=== PATIENT | male | born 1970 | race American Indian/Alaskan Native ===

== ENCOUNTER 2024-03-11 09:28 | Outpatient (CLI) | payer OTHER, SELFPAY ==
--- NOTE | ~2024-03-11 | XR_ITS ---
Left Knee Technique: AP, lateral, and sunrise views were obtained. Clinical History: Osteoarthritis Findings: No fracture or dislocation is seen. There is advanced tricompartmental osteoarthritis, with extensive osteophyte formation, and mild joint space narrowing, spurs at the lateral compartment.. S oft tissues are unremarkable. No joint effusion is seen. Impression: Advanced tricompartment osteoarthritis. Reviewed, dictated and finalized at location M. UX ENGINEER Impression: Advanced tricompartment osteoarthritis.
--- NOTE | ~2024-03-11 | XR_ITS ---
Right Knee Technique: AP, lateral, and sunrise views were obtained. Clinical History: Osteoarthritis Findings: No fracture or dislocation is seen. There is advanced tricompartment osteoarthritis, with e xtensive osteophyte formation. There is lateral compartment narrowing. There is a large loose body po sterior to the proximal tibia measuring 2.8 cm in diameter, possibly within a Murillo's cyst. Soft tiss ues are otherwise unremarkable. No joint effusion is seen. Impression: Advanced tricompartmental osteoarthritis, as detailed above. 2.8 cm ovoid loose body posterior to the proximal tibia, possibly within a Murillo's cyst. Reviewed, dictated and finalized at location M. GY PROJECTS LEAD Impression: Advanced tricompartmental osteoarthritis, as detailed above. 2.8 cm ovoid loose body posterior to the proximal tibia, possibly within a Bake r's cyst.
== END 2024-03-11 09:29 | disposition home or self-care (01) ==
LOC: ANHIMG 09:34
PROVIDERS: Visit Provider Orthopaedic Surgery
DX: M17.11 Unilateral primary osteoarthritis, right knee (principal); M23.41 Loose body in knee, right knee; M17.12 Unilateral primary osteoarthritis, left knee
CPT/HCPCS: 73564

== ENCOUNTER 2024-05-13 14:38 | Outpatient (CLI) | payer OTHER, SELFPAY ==
--- NOTE | ~2024-05-13 | CT_ITS ---
EXAMINATION: CT LE LT wo con DATE: 05/13/2024 15:17 INDICATION: Unilateral primary osteoarthritis, left knee. Preoperative planning. TECHNIQUE: Computed tomography (CT) of the left lower limb was performed without intravenous contrast . Automated exposure control and iterative reconstruction technique were employed. The dose-length pr oduct was 2010.10 mGy-cm. COMPARISON: Left knee radiographs 03/11/2024 FINDINGS: There is moderate left hip osteoarthritis. Left knee demonstrates severe osteoarthritis of the medial and patellofemoral compartments and moderate osteoarthritis of the lateral compartment. Th ere is a small knee joint effusion, predominantly medially. There is a ganglion cyst along medial col lateral ligament measuring 7.5 x 1.0 x 3.2 cm. IMPRESSION: 1. Severe left knee osteoarthritis. 2. Large ganglion cyst along medial collateral ligament of the knee. 3. Small knee joint effusion. 4. Moderate left hip osteoarthritis. Reviewed, dictated and finalized at location A. RANCE SPECIAL AGENT
--- NOTE | 2024-05-13 15:16 | ECG_ITS ---
Test Date: 2024-05-13 15:22:27 Measurements Intervals [place] Rate: 59 P: 53 DE: 161 QRS: 73 QRSD: 104 T: 73 QT: 443 QTc: 440 Interpretive Statements SINUS BRADYCARDIA INCOMPLETE RIGHT BUNDLE BRANCH BLOCK [90+ ms QRS DURATION, TERMINAL R IN V1/V2, 40+ ms S IN I/aVL/V4/V5/V6] No previous ECG available for comparison Electronically Signed On 05-15-2024 08:45:46 SUNGLASS CLIP ATTACHER by Temo Jimenez M.D.
[2024-05-13 15:45] LABS: Hematocrit 41.9 % (42.0-52.0)
[2024-05-13 16:01] LABS: Albumin Level 4.3 g/dL (3.5-5.1); Estimated Glomerular Filt Rate > 60; Glucose 105 mg/dL (65-110)
== END 2024-05-13 14:39 | disposition home or self-care (01) ==
PROVIDERS: Visit Provider Orthopaedic Surgery
DX: M17.12 Unilateral primary osteoarthritis, left knee (principal); M67.462 Ganglion, left knee; M25.462 Effusion, left knee; M16.12 Unilateral primary osteoarthritis, left hip
CPT/HCPCS: 36415; 73700; 82040; 82565; 82947; 85014; 85018; 93005

== ENCOUNTER 2024-07-23 11:46 | Outpatient (CLI) | payer OTHER, SELFPAY ==
--- OUTSIDE RECORDS SUMMARY | 2024-07-23 13:32 | XMS_ITS | Clinical Summary ---
Author Organization [facility] [place] Address [address] [place] [address] Care Team Providers Care Heel Former Name Role Phone Unavailable Primary Care Provider Unavailabl e Source Comments [facility],non-owned Affiliates and Associated Physician Practices is amultiple site organization consisting of ambulatory clinics and hospital sitesin [place], [place], [place] and [place]. This disclosure is being madepursuant to the Care Everywhere program and may not contain all information available regarding this patient. Last updated 18.[facility] Allergies No known active allergies Medications * Be aware that medications may not be up to date on this document. Alwaysverify current medications with the patient. Medication Sig Dispensed Refills Start Date End Date Status amLODIPine (Norvasc) 5 MG tabletIndications:Hyp ertension Take 1 (one) tablet by mouth once daily Reasons: High Blood Pressure Disorder Active losartan (Cozaar) 25 MG tabletIndications:Hyp ertension Take 1 (one) tablet by mouth once daily Reasons: High Blood Pressure Disorder Active albuterol HFA (Proventil; Ventolin; Proair) 108 (90 Base) MCG/ACT inhaler Inhale 2 (two) puffs by mouth every 6 hours as needed for Shortness of Breath or Wheezing Active aspirin EC (Ecotrin) 81 MG tablet Take 1 (one) tablet by mouth once daily Active esomeprazole (NexIUM) 20 MG capsule Take 1 (one) capsule by mouth as needed with food for Heartburn Active sertraline (Zoloft) 100 MG tablet Take 1 (one) tablet by mouth once daily Active ranolazine ER 12hr (Ranexa) 500 MG tablet Take 1 (one) tablet by mouth every 12 hours Active Active Problems Problem Noted Date Diagnosed Date Acute congestive heart failu re, unspecified heart failure type 04/03/2022 Essential hypertension 04/03/2022 Chest pain, unspecified type 04/03/2022 Social History Tobacco Use Types Packs/Day Years Used Date Smoking Tobacco: Never Assessed Sex and Gender Information Value Date Recorded Sex Assigned at Not on file Gender Identity Not on file Sexual Orientation Not on file Last Filed Vital Signs Vital Sign Reading Time Taken Comments Blood Pressure 150/98 04/04/2022 7:01 AM SALES PROMOTER Pulse 43 04/04/2022 7:01 AM SALES PROMOTER Temperature 37.1 C (98.7 F) 04/03/2022 5:04 AM SALES PROMOTER Respiratory Rate 20 04/04/2022 12:31 AM SALES PROMOTER Oxygen Saturation 94% 04/04/2022 7:02 AM SALES PROMOTER Inhaled Oxygen Concentration - - Weight 102.1 kg (225 lb) 04/03/2022 4:23 AM SALES PROMOTER Height 190.5 cm (6' 3 ) 04/03/2022 4:23 AM SALES PROMOTER Body Mass Index 28.12 04/03/2022 4:23 AM SALES PROMOTER Plan of Treatment Health Maintenance Due Date Last Done Comments COLOGUARD (AGES 45-75) - COL ON CA SCREENING 1968 COLON MONITORING 1968 COLONOSCOPY - COLON CA SCREENING 1968 CT COLONOGRAPHY - COLON CA SCREENING 1968 Colorectal Cancer Screening 1968 FIT - COLON CA SCREENING 1968 FLEX SIG - COLON CA SCREENING 1968 HIV SCREENING 1983 HEPATITIS C SCREENING 06/29/1986 DTAP/TDAP/TD VACCINES (1 - Tdap) 1987 HEPATITIS B VACCINE (1 of 3 - 19+ 3-dose series) 1987 PNEUMOCOCCAL VACCINE 50+ (1 of 1 - PCV) 2018 ZOSTER VACCINE (1 of 2) 2018 COVID-19 VACCINE ( - 2023-2 5 season) 2024 INFLUENZA VACCINE (#1) 2024 DEPRESSION SCREENING 05/07/2024 LIPID TESTING 04/04/2027 04/04/2022 HIB VACCINE Aged Out No longer eligi ble based on patient's age to complete this topic HPV VACCINE Aged Out No longer eligi ble based on patient's age to complete this topic MENINGOCOCCAL (Group B) VACC INE SHARED DECISION-MAKING Aged Out No longer eligibl e based on patient's age to complete this topic MENINGOCOCCAL GROUPS A/C/Y/W VACCINE Aged Out No longer eligible b ased on patient's age to complete this topic PNEUMOCOCCAL VACCINE Aged Out No long er eligible based on patient's age to complete this topic Procedures Procedure Name Priority Date/Time Associated Diagnosis Comments LIPID PROFILE STAT 04/04/2022 3:52 AM SALES PROMOTER Chest pain, unspecified type from Last 3 Months or Most Recently Relevant to Health Maintenance Results * (ABNORMAL) LIPID PROFILE (04/04/2022 3:52 AM SALES PROMOTER) Pathologist [facility] Cholesterol 129 <200 mg/dL 04/04/2022 4:15 AM SALES PROMOTER [facility] Triglycerides 54 <150 mg/dL 04/04/2022 4:15 AM SALES PROMOTER [facility] HDL Cholesterol 40(L) >40 mg/dL 2 4:15 AM SALES PROMOTER [facility] LDL Calculated 78 <130 mg/dL 04/04/2022 4:15 AM SALES PROMOTER [facility] VLDL Calculated 11 <=30 mg/dL 2 4:15 AM SALES PROMOTER [facility] Chol HDL Ratio 3.2 <4.5 04/04/2022 4:15 AM SALES PROMOTER [facility] LDL/HDL Ratio 2.0 <5.0 04/04/2022 4:15 AM SALES PROMOTER [facility] Blood BLOOD SPECIMEN / Unknown Venipuncture / Unknown 04/04/2022 3:52 AM SALES PROMOTER 04/04/2022 3:56 AM SALES PROMOTER Amy Flynn PHARMACY DELIVERY DRIVER-CIRCUIT DESIGNER LAB - CHEMISTR Y ORDERABLES [facility] [id number] [place] [address] from Last 3 Months or Most Recently Relevant to Health Maintenance Advance Directives * Full Code (Latest Code Status on File) Date Activated Date Inactivated Comments 04/03/2022 7:56 AM 04/04/2022 9:23 AM
--- OUTSIDE RECORDS SUMMARY | 2024-07-23 13:32 | XMS_ITS | Clinical Summary ---
Author Organization [facility] Address [address] [facility] [place] [address] Care Team Providers Care Auto Adjudication Specialist Name Role Phone Stalin Perez DO Primary Care Provider [phone] Allergies No known active allergies Medications albuterol sulfate 90 mcg/Actuation inhalerIndication s:Mild persistent asthma without complication Take 2 Puffs by inhalation every 6 hours as needed for Shortness of Breath. 8.5 Gram 3 2 Active sertraline (ZOLOFT) 100 mg tablet TAKE 1 TABLET BY MOUTH EVERY DAY 90 Tablet 3 2 Active aspirin (ECOTRIN EC) 81 mg Tablet, Delayed Release (E.C.) Take 1 Tablet (81 mg) by mouth daily. 3 Active ALPRAZolam (XANAX) 0.5 mg tablet 3 Active mirtazapine (REMERON) 7.5 mg tablet 3 Active methocarbamoL (ROBAXIN) 750 mg tablet Take 750 mg by mouth. PRN 3 Active albuterol sulfate HFA 90 mcg/actuation aerosol inhaler Take 2 Puffs by inhalation every 6 hours as needed for Shortness of Breath. 8.5 Gram 1 4 Active losartan (COZAAR) 100 mg tabletIndications :Essential hypertension Take 1 Tablet (100 mg) by mouth daily. 90 Tablet 3 4 Active ranolazine ER (RANEXA) 500 mg Extended Release 12 hour tablet Take 1 Tablet (500 mg) by mouth every 12 hours. 180 Tablet 2 4 Active rosuvastatin (CRESTOR) 5 mg tablet Take 1 Tablet (5 mg) by mouth daily. 90 Tablet 3 4 Active pantoprazole (PROTONIX) 20 mg Tablet, Delayed Release (E.C.) Take 1 Tablet (20 mg) by mouth daily. 90 Tablet 3 4 Active NIFEdipine (ADALAT CC) 90 mg Extended Release tablet Take 1 Tablet (90 mg) by mouth daily. 100 Tablet 3 4 Active carvediloL (COREG) 12.5 mg tablet Take 1 Tablet (12.5 mg) by mouth 2 times daily with meals. 180 Tablet 3 4 Active Active Problems Problem Noted Date Diagnosed Date Abdominal wall mass 12/07/2023 Thoracic aortic aneurysm without rupture 022 Essential hypertension 07/04/2021 Gastroesophageal reflux disease 07/04/2021 Mild persistent asthma without complication 06/08 Encounters Date Type Department Care Team Description 07/15/2024 External Device Data [facility] ABSTRACTION Provider, Abstract 07/14/2024 External Device Data [facility] ABSTRACTION Provider, Abstract 07/14/2024 External Device Data [facility] ABSTRACTION Provider, Abstract 06/25/2024 External Device Data [facility] ABSTRACTION Provider, Abstract 05/13/2024 External Device Data [facility] ABSTRACTION Provider, Abstract 04/28/2024 8:04 AM [employer] - 04/28/2024 11:59 PM [facility] Hospital Encounter [place] [phone] Pancho Pagan MD Discharge Disposition: Home or Self Care 04/28/2024 7:45 AM [employer] - 04/28/2024 11:59 PM [facility] Hospital Encounter [address] [address] Pancho Pagan MD Discharge Disposition: Home or Self Care from Last 3 Months Social History Tobacco Use Types Packs/Day Years Used Date Smoking Tobacco: Never Smokeless Tobacco: Never Tobacco Cessation:Counseling Given: Not Answered Alcohol Use Standard Drinks/Week Comments Not Currently 0 (1 standard drink = 0.6 oz pur e alcohol) Sex and Gender Information Value Date Recorded Sex Assigned at Not on file Legal Sex Male 11:14 AM [employer] Gender Identity Not on file Sexual Orientation Not on file Last Filed Vital Signs Vital Sign Reading Time Taken Comments Blood Pressure 132/84 03/25/2024 7:47 AM [employer] Pulse 52 03/25/2024 7:47 AM [employer] Temperature 36.6 C (97.8 F) 12/31/2023 9:00 AM CDT Respiratory Rate 17 12/31/2023 9:00 AM CDT Oxygen Saturation 94% 03/25/2024 7:47 AM [employer] Inhaled Oxygen Concentration - - Weight 100.2 kg (221 lb) 03/25/2024 7:47 AM [employer] Height 190.5 cm (6' 3 ) 03/25/2024 7:47 AM [employer] Body Mass Index 27.62 03/25/2024 7:47 AM [employer] Plan of Treatment Upcoming Encounters Date Type Department Care Team (Late st Contact Info) Description 08/07/2024 10:15 AM CDT Office Visit [facility] [address] [place] [phone] Pancho Pagan MD [address] [facility] [address] [place] [phone] Health Maintenance Due Date Last Done Comments Pre-Diabetes and Diabetes Screening 1968 DTAP/TDAP/TD VACCINES (1 - Tdap) 1987 HEPATITIS B VACCINES (1 of 3 - 19+ 3-dose series) 1987 COLORECTAL SCREENING 2013 Colorectal Cancer Screening 2013 FIT-DNA Q 3 years 2013 FIT/FOBT Q 1 year 2013 Flex Sig/CT Colonography Q 5 years 2013 ZOSTER VACCINE (1 of 2) 2018 INFLUENZA VACCINE (#1) 2023 07/04/2021 Preventative Visit- Commercial 05/07/2024 07/10/2023 , 05/17/2022 Medical Devices Implanted Type Area Mortgage Protection Specialist Device Identifier Shelf Expiration Date Model / Serial / Lot Stent Sherman Loda Jonatan [id number] Rx [id number] - [id number] Implanted:Qty: 1 on 01/04/2023 at [facility] Stent Coronary [employer] 03/15/2025 [id number] / / [id number] Procedures Procedure Name Priority Date/Time Associated Diagnosis Comments HM EJECTION FRACTION Routine 04/28/2024 10:30 AM [employer] NM MYOCARD PERF IMAG SPECT MULT Routine 04/28/2024 10:30 AM [employer] Coronary artery disease involving [place] coronary artery of [place] heart, unspecified whether angina present S/P drug eluting coronary stent placement Pre-op evaluation NM PHARMACOLOGICAL STRESS TEST Routine 04/28/2024 9:45 AM [employer] Coronary artery disease involving [place] coronary artery of [place] heart, unspecified whether angina present S/P drug eluting coronary stent placement Pre-op evaluation from Last 3 Months Results * HM EJECTION FRACTION (04/28/2024 10:30 AM [employer]) EJECTION FRACTION 62 50 - 65 % us Historical Provider HEALTH MAINTENANCE Final Res ult * NM MYOCARD PERF IMAG SPECT MULT (04/28/2024 10:30 AM [employer]) 04/28/2024 11:1 9 AM [employer] Impressions INTERFACE SYSTEM - 04/28/2024 1:16 PM [employer] IMPRESSION: 1) Stress EKG response was negative for ischemia. 2) The overall quality of the study is reduced, soft tissue attenuation and subdiaphragmatic activity is seen. 3) The myocardial perfusion scan is abnormal. Large size, mild perfusion defect involving the LV apex and extension into the basal to apical inferior wall. There is a mild degree of reversibility seen in the mid to apical inferior wall, with a summed difference score of 2. 4) Left ventricular size is normal with normal left ventricular systolic function, and a calculated ejection fraction of 62%. 5) These findings are consistent with inferior wall ischemia, although shifting artifact cannot be excluded. The apical perfusion defect is favored to represent soft tissue attenuation as there is normal associated regional wall motion; however, apical non-transmural infarction cannot be excluded. 5) No prior nuclear myocardial perfusion studies. The patient underwent stenting of the mid to distal LAD in December 2022; the LCX and RCA had no significant disease at that time. Please note that there is normal anterior wall perfusion on the current myocardial perfusion study. Recommendations: Clinical correlation is recommended. Narrative INTERFACE SYSTEM - 04/28/2024 1:16 PM [employer] Procedure Type: One Day Myoview Regadenoson Pharmacologic Stress Test Date of Procedure: 04/28/2024 10:30 AM Clinical Indication: This 53 years old Male with a clinical history of hypertension, aortic aneurysm, CAD, dyslipidemia is undergoing an evaluation for coronary artery disease via a pharmacologic stress test due to chest pain and preoperative evaluation. Height: 6 feet 3 inches; Weight: 221 pounds Medications:See List Pharmacologic Stress Procedure: The patient performed a pharmacologic stress test using 0.4 mg regadenoson IVP over 10 seconds with low level exercise. The heart rate was 51 bpm at baseline and increased to 105 bpm. The blood pressure was 158/106 mmHg at baseline and 172/81 mmHg during infusion, demonstrating a normal response to regadenoson. The patient felt shortness of breath and lightheadedness during the procedure. EKG: The baseline electrocardiogram showed sinus bradycardia with an incomplete right bundle branch block and septal myocardial infarction of indeterminate age. The stress electrocardiogram showed no ischemic changes. The electrocardiogram changes show a non-ischemic response to regadenoson. Nuclear Imaging Protocol: Myocardial perfusion imaging was performed at rest approximately 30 minutes following the intravenous injection of 5.867 mCi TC99m Myoview. Immediately after regadenoson infusion, the patient was injected intravenously with 18.970 mCi TC99m Myoview. Gated post - stress tomographic imaging was performed approximately 60 minutes later in same manner. SPECT reconstruction was performed in the short, vertical long and horizontal axis views in both resting and gated image sets. Findings: The overall quality of the study is reduced; soft tissue attenuation and subdiaphragmatic activity is seen. Rotating planar images reveal no motion artifact. The left ventricular size is normal. Post-stress SPECT myocardial perfusion images reveals a large size, mild perfusion defect involving the LV apex and extension into the basal to apical inferior wall. The rest images reveal mild reversibility of the mid to apical inferior wall. Gated SPECT imaging demonstrates normal wall motion in all regions, and a calculated left ventricular ejection fraction estimated to be 62%. There is no transient ischemic dilation (0.91). Procedure Note Hilario Mcnair MD - 04/28/2024 Procedure Type: One Day Myoview Regadenoson Pharmacologic Stress Test Date of Procedure: 04/28/2024 10:30 AM Clinical Indication: This 53 years old Male with a clinical history of hypertension, aortic aneurysm, CAD, dyslipidemia is undergoing an evaluation for coronary artery disease via a pharmacologic stress test due to chest pain and preoperative evaluation. Height: 6 feet 3 inches; Weight: 221 pounds Medications:See List Pharmacologic Stress Procedure: The patient performed a pharmacologic stress test using 0.4 mg regadenoson IVP over 10 seconds with low level exercise. The heart rate was 51 bpm at baseline and increased to 105 bpm. The blood pressure was 158/106 mmHg at baseline and 172/81 mmHg during infusion, demonstrating a normal response to regadenoson. The patient felt shortness of breath and lightheadedness during the procedure. EKG: The baseline electrocardiogram showed sinus bradycardia with an incomplete right bundle branch block and septal myocardial infarction of indeterminate age. The stress electrocardiogram showed no ischemic changes. The electrocardiogram changes show a non-ischemic response to regadenoson. Nuclear Imaging Protocol: Myocardial perfusion imaging was performed at rest approximately 30 minutes following the intravenous injection of 5.867 mCi TC99m Myoview. Immediately after regadenoson infusion, the patient was injected intravenously with 18.970 mCi TC99m Myoview. Gated post - stress tomographic imaging was performed approximately 60 minutes later in same manner. SPECT reconstruction was performed in the short, vertical long and horizontal axis views in both resting and gated image sets. Findings: The overall quality of the study is reduced; soft tissue attenuation and subdiaphragmatic activity is seen. Rotating planar images reveal no motion artifact. The left ventricular size is normal. Post-stress SPECT myocardial perfusion images reveals a large size, mild perfusion defect involving the LV apex and extension into the basal to apical inferior wall. The rest images reveal mild reversibility of the mid to apical inferior wall. Gated SPECT imaging demonstrates normal wall motion in all regions, and a calculated left ventricular ejection fraction estimated to be 62%. There is no transient ischemic dilation (0.91). IMPRESSION: 1) Stress EKG response was negative for ischemia. 2) The overall quality of the study is reduced, soft tissue attenuation and subdiaphragmatic activity is seen. 3) The myocardial perfusion scan is abnormal. Large size, mild perfusion defect involving the LV apex and extension into the basal to apical inferior wall. There is a mild degree of reversibility seen in the mid to apical inferior wall, with a summed difference score of 2. 4) Left ventricular size is normal with normal left ventricular systolic function, and a calculated ejection fraction of 62%. 5) These findings are consistent with inferior wall ischemia, although shifting artifact cannot be excluded. The apical perfusion defect is favored to represent soft tissue attenuation as there is normal associated regional wall motion; however, apical non-transmural infarction cannot be excluded. 5) No prior nuclear myocardial perfusion studies. The patient underwent stenting of the mid to distal LAD in December 2022; the LCX and RCA had no significant disease at that time. Please note that there is normal anterior wall perfusion on the current myocardial perfusion study. Recommendations: Clinical correlation is recommended. Pancho Pagan MD NM ORDERABLES Final Result INTERFACE SYSTEM Refer to clinic/hospital department * NM PHARMACOLOGICAL STRESS TEST (04/28/2024 9:45 AM [employer]IST [employer]) Narrative 04/28/2024 10:44 AM [employer]NER Order information only. Exam was auto-finalized. Panhco Pagan MD NM ORDERABLES Final Result from Last 3 Months Insurance [facility] [id number] [facility] [id number] RX [employer] [facility] [id number] Advance Directives For more information, please contact: [phone] Documents on File Type Date Recorded Patient Copy Worker Expl anation Advance Directive Living Will 01/05/2023 1:16 PM Advance Directive Living Will Advance Directive POA 01/05/2023 1:16 PM Ad salvador Directive POA * Full Code (Latest Code Status on File) Date Activated Date Inactivated Comments 01/04/2023 10:01 AM 01/04/2023 6:04 PM * Full Code Date Activated Date Inactivated Comments 01/04/2023 7:02 AM 01/04/2023 10:01 AM Care Teams Auto Adjudication Specialist Relationship Specialty Start Date End Date Stalin Perez DO [address] [place] [id number] (Ghaq) PCP - General Family Practice 12/11/22
--- OUTSIDE RECORDS SUMMARY | 2024-07-23 13:33 | XMS_ITS | Clinical Summary ---
Author Organization [facility] Address [address] [address] Care Team Providers Care Tactical/Mobile Watch Officer Name Role Phone Stalin Perez DO Primary Care Provider + Melecio Mcdaniels MD Unavailable [phone] Pancho Pagan MD Unavailable [phone] Allergies No known active allergies Medications sertraline (ZOLOFT) 100 mg tablet Take 2 tablets (200 mg total) by mouth daily 2 Active ranolazine ER (RANEXA) 500 mg 12 hr tablet Take 1 tablet (500 mg total) by mouth every 12 (twelve) hours [address] (NexIUM) 20 mg capsule Take 1 capsule (20 mg total) by mouth daily before breakfast 2 Active ALPRAZolam (XANAX) 0.5 mg tablet Take 1 tablet (0.5 mg total) by mouth 3 (three) times a day as needed for anxiety Active albuterol HFA (PROVENTIL HFA,VENTOLIN HFA,PROAIR HFA) 90 mcg/actuation inhaler Inhale 2 puffs every 6 (six) hours as needed for wheezing Active losartan (COZAAR) 100 mg tablet Take 1 tablet (100 mg total) by mouth daily Active fluticasone propion-salmete roL (ADVAIR DISKUS) 100-50 mcg/dose diskus inhaler Inhale 1 puff 2 (two) times a day Rinse mouth with water after use. Do not swallow. Active aspirin 81 mg enteric coated tablet Take 1 tablet (81 mg total) by mouth daily Active rosuvastatin (CRESTOR) 5 mg tablet Take 1 tablet (5 mg total) by mouth daily Active dextromethorpha n-guaifenesin 10-200 mg capsule Take 1 tablet/capsule by mouth every 6 (six) hours as needed (cough) Active carvediloL (COREG) 12.5 mg tablet Take 1 tablet (12.5 mg total) by mouth 2 (two) times a day with meals 120 tablet 4 Active NIFEdipine (PROCARDIA XL/ADALAT CC) 90 mg 24 hr tablet Take 1 tablet (90 mg total) by mouth daily 60 tablet 4 Active lidocaine (LIDODERM) 5 % Place 1 patch on the skin daily for 14 days Remove & discard patch within 12 hours or as directed by . 14 patch 4 Active methylPREDNISol one (MEDROL DOSEPACK) 4 mg Dosepack Take as directed on package 1 packet 5 Active triamcinolone (KENALOG) 0.1 % cream Apply topically 2 (two) times a day 30 g 5 Active gabapentin (NEURONTIN) 300 mg capsuleIndicati ons:Postherpeti c Neuralgia For post-herpetic neuralgia: Take 1 tablet on day 1, Then take 2 tablets on day 2, Then take 3 tablets on day 3 and every day after that as instructed by your doctor. 20 capsule 5 Active Active Problems Problem Noted Date Diagnosed Date Hypercholesterolemia 03/04/2024 History of placement of stent in LAD coronary [place] 03/04/2024 Hypertensive urgency 03/04/2024 Moderate alcohol consumption 03/04/2024 Asthma 05/22/2022 Acute congestive heart failure 04/03/2022 Acute chest pain 04/03/2022 Essential hypertension 07/04/2021 Gastroesophageal reflux disease without esophagi tis 07/04/2021 Mild persistent asthma without complication 06/08 Thoracic aortic aneurysm without rupture 022 Encounters Date Type Department Care Team Description 07/15/2024 6:27 AM CDT - 07/15/2024 7:27 AM CDT Emergency [facility] Emergency Department [address] [place] [address] Herpes zoster without complication (Primary Dx); Post herpetic neuralgia Discharge Disposition: Discharge to home or self care from Last 3 Months Surgical History Surgery Date Site/Laterality Comments HERNIA REPAIR Medical History Medical History Date Comments Hypertension Asthma Acute congestive heart failure (HCC) Chest pain Thoracic aortic aneurysm without rupture Gastroesophageal reflux disease Social History Tobacco Use Types Packs/Day Years Used Date Smoking Tobacco: Never Tobacco Cessation:Counseling Given: Not Answered Alcohol Use Standard Drinks/Week Comments Not Currently 0 (1 standard drink = 0.6 oz pur e alcohol) Personal Safety Answer Date Recorded Have you ever been in or are you currently in a harmful physical or emotional relationship or is someone making you feel afraid or unsafe? Denies 07/15/2024 Sex and Gender Information Value Date Recorded Sex Assigned at Not on file Legal Sex Male 8:38 AM CDT Gender Identity Not on file Sexual Orientation Not on file Obstetrics History Last Filed Vital Signs Vital Sign Reading Time Taken Comments Blood Pressure 146/100 07/15/2024 7:00 AM CDT Pulse 50 07/15/2024 7:00 AM CDT Temperature 36.3 C (97.4 F) 07/15/2024 5:26 AM CDT Respiratory Rate 16 07/15/2024 5:26 AM CDT Oxygen Saturation 99% 07/15/2024 7:00 AM CDT Inhaled Oxygen Concentration - - Weight 93 kg (205 lb) 07/15/2024 5:26 AM CDT Height 190.5 cm (6' 3 ) 07/15/2024 5:26 AM CDT Body Mass Index 25.62 07/15/2024 5:26 AM CDT Plan of Treatment Health Maintenance Due Date Last Done Comments Colon Cancer Screening-Colonoscopy 1968 Depression Screening 1968 Hepatitis C Screening 1968 Prostate Cancer Screening-PSA 1968 DTaP/Tdap/Td Vaccine (1 - Tdap) 1979 Hepatitis B Screening 1986 Regular Well Visit/Exam 18-64 1986 Pneumococcal vaccine <65 (1 of 2 - PCV) 1987 Zoster Vaccine (1 of 2) 2018 Influenza Vaccine (#1) 2024 Insurance [facility] Advance Directives For more information, please contact: [phone] * Full Code (Latest Code Status on File) Date Activated Date Inactivated Comments 03/04/2024 5:55 PM 03/06/2024 4:53 PM Care Teams Tactical/Mobile Watch Officer Relationship Specialty Start [place] [address] [place] [address] PCP - General Family Medicine 03/23/23 Melecio Mcdaniels MD [address] [place] [address] Consulting Physician Cardiology 03/04/24 Pancho Pagan MD [address] [place] [address] Referring Physician Internal Medicine 03/06/24
--- OUTSIDE RECORDS SUMMARY | 2024-07-23 13:33 | XMS_ITS | Referral Summary ---
Author Organization [facility] Address [address] [address] Care Team Providers Care Dietetics Director Name Role Phone Chris Stalin Ken DO Primary Care Provider + Melecio Mcdaniels MD Unavailable [phone] Pancho Pagan MD Unavailable [phone] Encounters Date Type Department Care Team Description 07/15/2024 6:27 AM CDT - 07/15/2024 7:27 AM CDT Emergency [facility] Emergency Department [address] [address] Herpes zoster without complication (Primary Dx); Post herpetic neuralgia Discharge Disposition: Discharge to home or self care from Last 3 Months Allergies No known active allergies Medications sertraline [...] within 12 hours or as directed by MD. 14 patch 4 Active methylPREDNISol one (MEDROL [...] 06/08 Thoracic aortic aneurysm without rupture 022 Social History Tobacco Use Types Packs/Day Years [...] 07/15/2024 5:26 AM CDT Plan of Treatment Not on file Insurance [facility] Advance Directives For more information, please contact: [phone] * Full Code (Latest Code Status on File) Date Activated Date Inactivated Comments 03/04/2024 5:55 PM 03/06/2024 4:53 PM Care Teams Dietetics Director Relationship Specialty [place] [address] [place] [address] PCP - General Family Medicine 03/23/23 Melecio Mcdaniels MD [address] [place] [address] Consulting Physician Cardiology 03/04/24 Pancho Pagan MD [address] [place] [address] Referring Physician Internal Medicine 03/06/24
[2024-07-23 13:36] LABS: Basophils Absolute Auto 0.1 K/mm3 (0.0-0.1); Basophils Percent Auto 0.3 % (0.2-1.2); Immature Granulocyte Percent A 0.7 % (0-0.5); Lymphocytes Absolute Auto 1.89 K/mm3 (0.9-3.2); Lymphocytes Percent Auto 12.3 % (18.3-44.2); Mean Corpuscular HGB Conc 33.3 g/dl (32-36); Mean Corpuscular Hemoglobin 30.5 pg (26-34); Mean Corpuscular Volume 91.6 fl (80-100); Mean Platelet Volume 9.2 fl (7.4-10.4); Monocytes Absolute Auto 1.2 K/mm3 (0.1-0.6); Monocytes Percent Auto 7.5 % (2.6-8.5); Neutrophils Absolute Auto 12.1 K/mm3 (1.3-6.7); Neutrophils Percent Auto 79.2 % (45.5-73.1); Platelet Count Result 393 k/mm3 (150-375); Red Blood Count 5.24 M/mm3 (4.6-6.20); Red Cell Distribution Width 13.2 % (11.5-14.5); White Blood Count 15.3 K/mm3 (4.5-10.0)
[2024-07-23 13:56] LABS: Hemoglobin A1C 5.4 % (<5.7)
[2024-07-23 14:05] LABS: Urine Cotinine NEGATIVE
[2024-07-23 14:20] LABS: Albumin Level 4.8 g/dL (3.5-5.1); Estimated Glomerular Filt Rate > 60; Glucose 108 mg/dL (65-110)
[2024-07-23 14:47] LABS: MRSA (PCR) NOT DETECTED (NOT DETECTE)
== END 2024-07-23 11:47 | disposition home or self-care (01) ==
LOC: ANHSURGERY 11:51
PROVIDERS: Visit Provider Orthopaedic Surgery
DX: Z01.818 Encounter for other preprocedural examination (principal); M17.12 Unilateral primary osteoarthritis, left knee
CPT/HCPCS: 80307; 82040; 82565; 82947; 83036; 85025; 87641

== ENCOUNTER 2024-08-11 01:04 | Day surgery (SDC) | payer OTHER, SELFPAY ==
--- NOTE | 2024-07-23 11:59 | PC.NURSE ---
Report to the Outpatient Waiting Room, entrance under the green pavilion located off [facility], at time _10 AM on date __08/11/24 . Planned Procedure Time: __1200 NOON .? Time changes happen often and if your time is changed the preop area will call you the afternoon before. - You and your visitor will be asked to self-screen and do not enter if you have any COVID symptoms. Please call surgeon if you need to reschedule. - A mask is optional within the hospital at this time. Patients may have clear liquids (water, carbonated beverages, clear teas, apple juice) until 3 hours prior to surgery with a maximum of 20 ounces. - No food from midnight until time of surgery and no smoking, or chewing tobacco (or any form of nicotine). No chewing gum, candy or mints. - Infants may have breast milk until 4 hours before surgery, formula 6 hours prior to surgery. - Children will be allowed to drink immediately following surgery.? If applicable, please bring a bottle or sippy cup to assist with drinking. Juice, water, soda, and popsicles are readily available.? For infants on formula, please bring formula the day of surgery.? Pacifiers are allowed. Take only the following medications with a SIP of water on the morning of surgery: _INHALER ,CARVEDILOL,NIFEDIPINE,RANOLAZINE,SERTRALINE,ALPRAZOLAM DO NOT STOP ANY OF YOUR OTHER PRESCRIPTION MEDICATIONS PRIOR TO SURGERY EXCEPT THE FOLLOWING Hold all vitamins and supplements for 3 days per anesthesiologist.08/07/24 Medications to discontinue per physician ASPIRIN HOLD 7 DAYS PRE OP PER DR MONTES Date to take last dose 08/04/24 Please no make-up, nail indonesian, hairspray, perfume, deodorant, or body powder the day of surgery.? No jewelry (including any body piercings) or valuables the day of surgery, leave them at home.? Please take a shower or bath the night before, or the morning of, surgery with an antibacterial soap.? Wear comfortable, loose fitting clothing.? Children are encouraged to wear pajamas. - Jewelry must be removed prior to entering the operating room.? Rings and piercings that are not removed may be cut off. - The hospital will not accept responsibility for valuables.? - Please leave all valuables, including medications, at home the day of surgery. If you are going home after surgery, a licensed special education bus driver must drive you home.? - NO public transportation without another adult if you receive anesthesia. - We recommend that an adult stay with you for 24 hours following discharge. - We also recommend that you do not drive, make important decision, drink alcoholic beverages, or take any drugs that were not prescribed by your health care provider for at least 24 hours after your discharge time. For Pediatric surgeries, we recommend two adults accompany the child home. Follow any additional instructions given to you from your surgeon. VERBAL AND WRITTEN instructions given to _PATIENT and asked if any additional questions and then verbalized understanding. Patient advised to call surgeon office or pre surgery nurse liaison [phone] if any additional questions.
[2024-07-23 12:02] VITALS: BMI 27.5
[2024-07-23 12:58] VITALS: BP 147/100; PULSE 66; RESP 18; TEMP 36.8; O2SAT 97
[2024-08-11] VITALS (15 sets, daily range): BP systolic 113–165; BP diastolic 77–104; PULSE 51–99; RESP 10–20; TEMP 36.4–36.7; O2SAT 92–100
--- NOTE | ~2024-08-11 | XR_ITS ---
[id number] Ordering provider: Sixto Huang MD History: . POST-OP, LEFT CUSTOM TKA . Comparison: None. FINDINGS: BONES: No acute fracture or dislocation. JOINT SPACES: Total knee arthroplasty. SOFT TISSUES: Postoperative changes in the soft tissues. IMPRESSION: No acute osseous abnormality left knee. Total knee arthroplasty. Reviewed, dictated and finalized at location A.
--- OUTSIDE RECORDS SUMMARY | 2024-08-11 01:08 | XMS_ITS | Clinical Summary ---
Author Organization [facility] Address [address] [address] Care Team Providers Care Pathology Secretary Name Role Phone Stalin Perez DO Primary Care Provider + Melecio Mcdaniels MD Unavailable [phone] Pancho Pagan MD Unavailable [phone] Allergies No known active allergies Medications sertraline [...] CDT - 07/15/2024 7:27 AM CDT Emergency [facility] Emergency Department [address] [place] [address] Herpes zoster without complication (Primary [...] 2) 2018 Influenza Vaccine (#1) 2024 Insurance [facility] Advance Directives For more information, please contact: [phone] * Full Code (Latest Code Status on File) Date Activated Date Inactivated Comments 03/04/2024 5:55 PM 03/06/2024 4:53 PM Care Teams Pathology Secretary Relationship Specialty Start Date [place] [address] [place] [address] PCP - General Family Medicine 03/23/23 Melecio Mcdaniels MD [address] [place] [address] Consulting Physician Cardiology 03/04/24 Pancho Pagan MD [address] [place] [id number] Referring Physician Internal Medicine 03/06/24
--- OUTSIDE RECORDS SUMMARY | 2024-08-11 01:08 | XMS_ITS | Clinical Summary ---
Author Organization [facility] [employer] Address [address] [place] [address] Care Team Providers Care Director Global Strategic Publisher Sales Name Role Phone Unavailable Primary Care Provider Unavailabl e Source Comments [facility],non-owned Affiliates and Associated Physician Practices is amultiple site organization consisting of ambulatory clinics and hospital sitesin [place], [place], [place] and [place]. This disclosure is being madepursuant to the Care Everywhere program and may not contain all information available regarding this patient. Last updated 18.[facility] [employer] Allergies No known active allergies Medications * [...] Comments Blood Pressure 150/98 04/04/2022 7:01 AM EMERGENCY MEDICAL TECHNICIAN/DRIVER Pulse 43 04/04/2022 7:01 AM EMERGENCY MEDICAL TECHNICIAN/DRIVER Temperature 37.1 C (98.7 F) 04/03/2022 5:04 AM EMERGENCY MEDICAL TECHNICIAN/DRIVER Respiratory Rate 20 04/04/2022 12:31 AM EMERGENCY MEDICAL TECHNICIAN/DRIVER Oxygen Saturation 94% 04/04/2022 7:02 AM EMERGENCY MEDICAL TECHNICIAN/DRIVER Inhaled Oxygen Concentration - - Weight 102.1 kg (225 lb) 04/03/2022 4:23 AM EMERGENCY MEDICAL TECHNICIAN/DRIVER Height 190.5 cm (6' 3 ) 04/03/2022 4:23 AM EMERGENCY MEDICAL TECHNICIAN/DRIVER Body Mass Index 28.12 04/03/2022 4:23 AM EMERGENCY MEDICAL TECHNICIAN/DRIVER Plan of Treatment Health Maintenance Due Date [...] Comments LIPID PROFILE STAT 04/04/2022 3:52 AM EMERGENCY MEDICAL TECHNICIAN/DRIVER Chest pain, unspecified type from Last 3 Months or Most Recently Relevant to Health Maintenance Results * (ABNORMAL) LIPID PROFILE (04/04/2022 3:52 AM EMERGENCY MEDICAL TECHNICIAN/DRIVER) Cholesterol 129 <200 mg/dL 04/04/2022 4:15 AM EMERGENCY MEDICAL TECHNICIAN/DRIVER [facility] Triglycerides 54 <150 mg/dL 04/04/2022 4:15 AM EMERGENCY MEDICAL TECHNICIAN/DRIVER [facility] HDL Cholesterol 40(L) >40 mg/dL 2 4:15 AM EMERGENCY MEDICAL TECHNICIAN/DRIVER [facility] LDL Calculated 78 <130 mg/dL 04/04/2022 4:15 AM EMERGENCY MEDICAL TECHNICIAN/DRIVER [facility] VLDL Calculated 11 <=30 mg/dL 2 4:15 AM EMERGENCY MEDICAL TECHNICIAN/DRIVER [facility] Chol HDL Ratio 3.2 <4.5 04/04/2022 4:15 AM EMERGENCY MEDICAL TECHNICIAN/DRIVER [facility] LDL/HDL Ratio 2.0 <5.0 04/04/2022 4:15 AM EMERGENCY MEDICAL TECHNICIAN/DRIVER [facility] Blood BLOOD SPECIMEN / Unknown Venipuncture / Unknown 04/04/2022 3:52 AM EMERGENCY MEDICAL TECHNICIAN/DRIVER 04/04/2022 3:56 AM EMERGENCY MEDICAL TECHNICIAN/DRIVER Amy Flynn AUTO BODY SHOP MANAGER-BLUNGER LOADER LAB - CHEMISTR Y ORDERABLES Performing Organization Address City/State/[facility] Co de Phone Number [facility] [address] [place] [address] from Last 3 Months or Most Recently Relevant to Health Maintenance Advance Directives * Full Code (Latest Code Status on File) Date Activated Date Inactivated Comments 04/03/2022 7:56 AM 04/04/2022 9:23 AM
--- OUTSIDE RECORDS SUMMARY | 2024-08-11 01:08 | XMS_ITS | Referral Summary ---
Author Organization [facility] Address [address] [address] [address] [address] Care Team Providers Care Television News Photographer Name Role Phone Chris Stalin Ken DO Primary Care Provider + Melecio Mcdaniels MD Unavailable [phone] Pancho Pagan MD Unavailable [phone] Encounters Date Type Department Care Team Description 07/15/2024 6:27 AM CDT - 07/15/2024 7:27 AM CDT Emergency [facility] Emergency Department [address] [place] [address] Herpes zoster without [...] Plan of Treatment Not on file Insurance [facility] H[facility]/PPO Address: [address] [address] [facility] H[facility]/PPO Address: [address] [place] [phone] [facility] H[facility]/PPO Address: [address] [place] [phone] Advance Directives For more information, please contact: [phone] * Full Code (Latest Code Status on File) Date Activated Date Inactivated Comments 03/04/2024 5:55 PM 03/06/2024 4:53 PM Care Teams Television News Photographer Relationship Specialty [place] [address] [place] [address] PCP - General Family Medicine 03/23/23 Melecio Mcdaniels MD [address] [place] [address] Consulting Physician Cardiology 03/04/24 Pancho Pagan MD [address] [place] [address] Referring Physician Internal Medicine 03/06/24
--- OUTSIDE RECORDS SUMMARY | 2024-08-11 01:08 | XMS_ITS | Clinical Summary ---
Author Organization [facility] Address [address] [address] Care Team Providers Care Park Services Specialist Name Role Phone Chris Stalin ALBRIGHT Primary Care Provider [phone] Allergies No known active allergies Medications albuterol [...] 180 Tablet 3 4 Active Active Problems Patient Care Coordination No te Formatting of this note migh t be different from the original. Pancho Pagan MD- [facility] Heart & V[facility] ( [facility] Problem Noted Date Diagnosed Date Abdominal wall mass 12/07/2023 Thoracic aortic aneurysm without rupture 022 Essential hypertension 07/04/2021 Gastroesophageal reflux disease 07/04/2021 Mild persistent asthma without complication 06/08 Encounters Date Type Department Care Team Description 08/07/2024 10:15 AM CDT Office Visit [facility] Heart and Vascular - [facility] [address] [place] [address] [place] [phone] Pancho Pagan MD Coronary artery disease involving hoopa coronary artery of hoopa heart, unspecified whether angina present (Primary Dx); S/P drug eluting coronary stent placement; Essential hypertension; Abdominal aortic aneurysm (AAA), unspecified part, unspecified whether ruptured; Aortic root dilation 08/05/2024 External Device Data ST[facility] ABSTRACTION Provider, Abstract 07/23/[address] [facility] V[facility] At [place] [address] [place] [phone] Pancho Pagan MD 07/15/2024 External Device Data ST[facility] ABSTRACTION Provider, Abstract 07/14/2024 External Device Data [facility] ABSTRACTION Provider, Abstract 07/14/2024 External Device Data [facility] ABSTRACTION Provider, Abstract 06/25/2024 External Device Data ST[facility] ABSTRACTION Provider, Abstract 05/13/2024 External Device Data STL ABSTRACTION Provider, Abstract from Last 3 Months Social History Tobacco Use Types Packs/Day Years Used Date Smoking Tobacco: Never Smokeless Tobacco: Never Alcohol Use Standard Drinks/Week Comments Not Currently 0 (1 standard drink = 0.6 oz pur e alcohol) Sex and Gender Information Value Date Recorded Sex Assigned at Not on file Legal Sex Male 11:14 AM MICROBIOLOGY COORDINATOR Gender Identity Not on file Sexual Orientation Not on file Last Filed Vital Signs Vital Sign Reading Time Taken Comments Blood Pressure 110/74 08/07/2024 10:22 AM CDT Pulse 70 08/07/2024 10:22 AM CDT Temperature 36.6 C (97.8 F) 12/31/2023 9:00 AM CDT Respiratory Rate 17 12/31/2023 9:00 AM CDT Oxygen Saturation 97% 08/07/2024 10:22 AM CDT Inhaled Oxygen Concentration - - Weight 96.6 kg (213 lb) 08/07/2024 10:22 AM CDT Height 190.5 cm (6' 3 ) 08/07/2024 10:22 AM CDT Body Mass Index 26.62 08/07/2024 10:22 AM CDT Plan of Treatment Upcoming Encounters Date Type Department Care Team (Late st Contact Info) Description 02/12/2025 10:00 AM CDT Office Visit [facility] Heart [facility] Vascular - [facility] [address] [place] [phone] Pancho Pagan MD [address] [facility] [address] [place] [address] Health Maintenance Due Date Last Done Comments [...] (#1) 2023 07/04/2021 Preventative Visit- Commercial 05/07/2024 0 07/09/2024, 07/10/2023, 05/17/2022 Medical Devices Implanted Type Area Cosmetics Supervisor Device Identifier Shelf Expiration Date Model / Serial / Lot Stent [place] Jonatan [id number] - [id number] Implanted:Qty: 1 on 01/04/2023 at [facility] Stent Coronary [employer] 03/15/2025 [id number] / / [id number] Insurance [facility] [id number] [facility] [employer] [id number] RX [employer] Commercial [facility] [id number] Advance Directives For more information, please contact: [phone] Documents on File Type Date Recorded Patient Speech Pathology Supervisor Expl anation Advance Directive Living Will 01/05/2023 1:16 PM Advance Directive Living Will Advance Directive POA 01/05/2023 1:16 PM Ad salvador Directive POA * Full Code (Latest Code Status on File) Date Activated Date Inactivated Comments 01/04/2023 10:01 AM 01/04/2023 6:04 PM * Full Code Date Activated Date Inactivated Comments 01/04/2023 7:02 AM 01/04/2023 10:01 AM Care Teams Park Services Specialist Relationship Specialty Start Date End Date Stalin Perez DO [address] [place] [address] PCP - General Family Practice 12/11/22
[2024-08-11] MEDS: TRANEXAMIC ACID 1,000MG/ISO100 1,000 MG/100 ML BAG 200 MG IVPB (10:45)
[2024-08-11] MEDS: LACTATED RINGERS 1,000 ML 30 ML IV CONT ×2 (10:45→14:20)
[2024-08-11] MEDS: ACETAMINOPHEN 500 MG TABLET 1000 MG PO (10:45)
--- NOTE | 2024-08-11 11:07 | WPDANESEPPF ---
Anes - Initial Pre Proc Eval Procedure: Operation Date: 08/11/24 12:00 Proposed Procedures p Left Custom Total Knee Arthroplasty - Sixto Huang MD Date/Time: 08/11/24 11:07 Surgeon: Sixto Huang MD Pre Op Diagnosis: Prim O A Lt Knee Patient Data Age: 54 Gender: M Height: 1.83 m Weight: 94.2 kg Last Vital Signs Temp 97.6 F 08/11/24 10:45 Pulse 99 08/11/24 10:45 Resp 14 08/11/24 10:45 BP 154/99 H 08/11/24 10:45 Pulse Ox 96 08/11/24 10:45 O2 Del Method Room Air 07/23/24 12:58 Allergies Allergy/AdvReac Type Severity Reaction Status Date / Time No Known Allergies Allergy Verified 07/23/24 14:42 Home Medications ?Medication ?Instructions ?Recorded ?Confirmed ?Type albuterol sulfate 90 mcg/actuation 1 inh inhalation Q4H 06/19/22 07/23/24 History aerosol inhaler alprazolam 0.5 mg tablet 0.5 mg PO DAILY 06/19/22 07/23/24 History fluticasone 100 mcg-salmeterol 50 1 inh inhalation Q12H 06/19/22 07/23/24 History mcg/dose blistr powdr for inhalation (Wixela Inhub) losartan 100 mg tablet 100 mg PO DAILY 06/19/22 07/23/24 History omeprazole 20 mg capsule,delayed 20 mg PO DAILY 06/19/22 07/23/24 History release sertraline 100 mg tablet 100 mg PO DAILY 06/19/22 07/23/24 History aspirin 81 mg chewable tablet 81 mg PO DAILY 03/17/24 07/23/24 History (Carolyne Chewable Low Dose Aspirin) carvedilol 12.5 mg tablet 12.5 mg PO Q12H 03/17/24 07/23/24 History nifedipine 10 mg capsule 10 mg PO Q12H 03/17/24 07/23/24 History ranolazine 500 mg tablet,extended 500 mg PO Q12H 03/17/24 07/23/24 History release,12 hr rosuvastatin 5 mg tablet 5 mg PO DAILY 03/17/24 07/23/24 History cholecalciferol (vitamin D3) 50 250 mcg PO DAILY 07/23/24 07/23/24 History mcg (2,000 unit) capsule nifedipine 90 mg tablet,extended 90 mg PO DAILY 07/23/24 07/23/24 History release aspirin 81 mg tablet,delayed 81 mg PO BID 14 days #28 tabs 08/11/24 Rx release meloxicam 15 mg tablet 15 mg PO DAILY #30 tabs 08/11/24 Rx oxycodone-acetaminophen 5 mg-325 1 - 2 tablet PO Q4-6H PRN pain 7 08/11/24 Rx mg tablet days #30 tabs prednisone 5 mg tablet 5 mg PO DAILY 3 weeks #21 tabs 08/11/24 Rx Patient hx anesthesia problems: none Family hx anesthesia problems: none Results Review: All pre-operative results and documents have been reviewed as part of the pre-operative evaluation. [facility] Past Medical History Medical History History of bruising easily History of stress test (~12/2022) Hypertension History of recent hospitalization Hospitalization - high blood pressure (03/11/24- 03/13/24) History of left heart catheterization X 2 Surgical History Surgical History History of dental surgery History of coronary artery stent placement (~2022) History of ear surgery x 3 Hx of inguinal hernia surgery x 2 Family History Family History Sibling Lung cancer Social History Social History Smoking packs per day: 2 Smoking cigarettes per day: 40.0 Years smoked: 20 Smoking pack-years: 40.00 Smoking status: Former smoker Tobacco type: cigarettes Smoking end date: 05/07/03 Additional smoking assessment comments: DENIES ANY FORM OF TOBACCO USE Alcohol intake: current Drinks per week: 2 Alcohol use details: 05/11 VODKA WK Substance use: current Substance use type: marijuana Last use: 07/22/24 Do You Feel Safe in your Home?: Yes Lack of Transportation: No Lack of Food: Never True Current Housing: I Have Housing Concerned About Future Housing: No Difficulty Paying Gas/Electric Bills: No Difficulty Paying for Meds: No Currently Unemployed: No Education: High School Diploma/GED Difficulty w/ Childcare or Family Care: No Living arrangements: with family Spiritual care concerns: No Anes - Eval Final PreProcedure Day of Procedure 08/11/24 11:07 Patient weight: normal Lungs: normal air movement Airway: Mallampati scale class II and special considerations (Missing many teeth, in post aspect. ) Neurological: alert and oriented Last oral intake: >/= 8 hours ASA classification: III Emergent: no Anesthetic plan: proceed Anesthesia type and monitoring: general LMA and standard monitoring Results Review: All pre-operative results and documents have been reviewed as part of the pre-operative evaluation. HTN, PTCA 2022, cleared by Dr Pagan (cardio) for surgery. Pt smokes marijuana daily approx 4 x/day. Informed Consent: The patient's anesthetic plan and its attendant risks and benefits were discussed with the patient/family/POA. Questions were solicited and answers provided to the satisfaction of the patient/family/POA.
--- NOTE | 2024-08-11 11:29 | WPDHPUPDATE1 ---
History and Physical Update Update Date/Time: 08/11/24 11:29 History and Physical has been reviewed, including an updated exam of the patient. There are NO changes in the patient's condition. Risks, benefits, and alternatives have been discussed and questions answered. Patient agrees to proceed with procedure.
[2024-08-11] MEDS: ceFAZolin 2 GM/D5W 50 ML 2 GM/50 ML BAG IVPB ×2 (12:09→20:44)
[2024-08-11] MEDS: SODIUM CHLORIDE 0.9% IV 37.7 ML, MORPHINE SULFATE INJ (*CRX) 2 MG, ROPivacaine HCL 1% 2... INFILTRATE (12:41)
[2024-08-11] MEDS: GENTAMICIN BONE CEMENT REFOBACIN 1 EACH TOPICAL (13:39)
[2024-08-11] MEDS: TRANEXAMIC ACID 1,000 MG/10 ML AMPUL 1000 MG IV PUSH (13:50)
[2024-08-11] MEDS: hydrALAZINE HCL 20 MG/ML VIAL 5 MG IV PUSH ×2 (15:30→15:45)
[2024-08-11] MEDS: fentaNYL CITRATE INJ (*CRX) 100 MCG/2 ML VIAL 25 MCG IV PUSH ×4 (15:30→15:36)
[2024-08-11] MEDS: ASPIRIN 81 MG ENTERIC TABLET PO (16:47)
[2024-08-11] MEDS: MELOXICAM 7.5 MG TABLET PO (16:47)
[2024-08-11] MEDS: ACETAMINOPHEN 325 MG TABLET 650 MG PO (16:59)
--- NOTE | 2024-08-11 17:09 | ADMGEN ---
This patient, Gustavo Chaparro, was admitted to 3 Med Surg Room 328-01. Patient/family oriented to hospital policies and general routines including ID bracelet, bed and alarms, visiting hours, pain management, procedures, bathroom and other care routines, personal items, smoking policy, room service/diet, and visiting hours. Information on how to activate the Rapid Response Team has been discussed. Patient/Family are encouraged to report perceived risks to care and to ask questions if they do not understand what they are told or what they should do. Report from Sultana in PACU.
--- NOTE | 2024-08-11 17:12 | W.PM.PROC2 ---
Procedure Note - Detailed Date of Procedure 08/11/24 Pre-op Diagnosis Left knee degenerative arthritis. Post-op Diagnosis Same Procedure Performed Custom total knee arthroplasty, left Surgeon Sixto Huang MD Basting Machine Operator Eveline Zhang PA-C Anesthesia General Findings Excellent bone quality. No releases required. Description of Procedure Preoperative antibiotics were given. The limb was prepped and draped in the usual sterile fashion with a well-padded tourniquet high on the thigh. The limb was exsanguinated and the tourniquet inflated to 300 mmHg. A longitudinal incision was created just medial to the patella. A trivector approach to the knee was performed. Arthrotomy was taken down through the joint capsule. No significant releases were initially taken. The femur was exposed and the F1 jig was applied. The coring tool was used to remove the cartilage for the F2 jig to sit flush with the bone. The jig was pinned and the distal cut carefully taken. Caliper measurements confirmed appropriate bony resections according to the preoperative templated plan. The F4 cutting jig for the femur was applied, at the standard rotation. The AP and anterior chamfer cuts were taken. The F5 jig was applied and the posterior chamfer cuts were taken. The tibia was prepared using the T1 jig, after removing cartilage for the jig contact points. Proper alignment was checked with the alignment avel. The tibia was cut using the T1u guide. Gap balancing was performed. Gap measurements were taken and the knee was trialed. Excellent alignment and soft tissue balancing was confirmed. The posterior cruciate ligament was recessed along the proximal tibia. The patella was cut for resurfacing. Three lug holes were drilled. Meniscal remnants were removed. The trial components were assembled. Excellent range of motion and proper soft tissue balancing were confirmed throughout the full range of motion. Patellar tracking was excellent. The knee was copiously irrigated periodically throughout the procedure. The real implants were cemented into position. Excess cement was carefully removed. The wound was closed in layers with interrupted #1 Vicryl suture, 2-0 strata fix suture, 0 strata fix suture, 2-0 strata fix suture. Steri-Strips placed on the skin with the knee flexed. Sterile bulky dressing applied. The patient was brought to the recovery room in stable condition. There were no complications. Physician rn first assistant, Eveline Pisarski, PA-C, required for surgery; including patient positioning, draping, tissue retraction, maintaining instrument position, cement removal, wound closure, and dressing placement. Implants Conformis Custom total knee arthroplasty. Cemented. Cruciate retaining. 7C insert. 38 mm oval patella. Estimated Blood Loss 20 Tourniquet Time Total Tourniquet Time: 77 Drains No Complications No immediate complications Condition Stable Disposition PACU [facility] Billing Surgery - Charge Forward: Surgery Billing
--- NOTE | 2024-08-11 18:15 | PCRCNOTE ---
Window of time for administration has passed. See next scheduled administration.
[2024-08-11] MEDS: oxyCODONE/ACETAMINOPHEN (*CRX) 10-325 MG TABLET 1 TAB PO (18:26)
[2024-08-11] MEDS: FAMOTIDINE 20 MG TABLET PO (20:40)
[2024-08-11] MEDS: carvediloL 12.5 MG TABLET PO (20:40)
[2024-08-11] MEDS: CYCLOBENZAPRINE HCL 10 MG TABLET PO (20:41)
[2024-08-11] MEDS: RANOLAZINE 500 MG TAB.ER.12H PO (20:41)
[2024-08-11] MEDS: SENNA/DOCUSATE SODIUM TABLET 2 TAB PO (20:41)
[2024-08-11] MEDS: ALBUTEROL SULFATE (*SP) AEROSOL 1 PUFF INHALATION (21:00)
[2024-08-11] MEDS: ALPRAZolam (*CRX) 0.5 MG TABLET PO (21:43)
[2024-08-12] MEDS: oxyCODONE/ACETAMINOPHEN (*CRX) 10-325 MG TABLET 1 TAB PO ×2 (00:09→05:36)
[2024-08-12] MEDS: ALBUTEROL SULFATE (*SP) AEROSOL 1 PUFF INHALATION ×2 (00:10→07:55)
[2024-08-12] MEDS: ACETAMINOPHEN 325 MG TABLET 650 MG PO ×2 (00:11→05:36)
[2024-08-12 00:37] VITALS: BP 132/83; PULSE 57; RESP 20; TEMP 36.4; O2SAT 98
[2024-08-12 05:28] VITALS: BP 137/87; PULSE 50; RESP 20; TEMP 36.4; O2SAT 94
[2024-08-12] MEDS: ceFAZolin 2 GM/D5W 50 ML 2 GM/50 ML BAG IVPB (05:33)
[2024-08-12 06:11] LABS: Basophils Percent Auto 0.2 % (0.2-1.2); Eosinophils Absolute Auto 0.1 K/mm3 (0-0.3); Eosinophils Percent Auto 0.7 % (0-4.4); Hematocrit 38.9 % (42.0-52.0); Hemoglobin 12.4 g/dL (14.0-18.0); Immature Granulocyte Absolute 0.05 K/mm3 (0.00-0.031); Immature Granulocyte Percent A 0.5 % (0-0.5); Lymphocytes Absolute Auto 2.47 K/mm3 (0.9-3.2); Lymphocytes Percent Auto 23.1 % (18.3-44.2); Mean Corpuscular HGB Conc 31.9 g/dl (32-36); Mean Corpuscular Hemoglobin 30.3 pg (26-34); Mean Corpuscular Volume 95.1 fl (80-100); Mean Platelet Volume 9.4 fl (7.4-10.4); Monocytes Absolute Auto 0.9 K/mm3 (0.1-0.6); Monocytes Percent Auto 8.8 % (2.6-8.5); Neutrophils Absolute Auto 7.1 K/mm3 (1.3-6.7); Neutrophils Percent Auto 66.7 % (45.5-73.1); Platelet Count Result 226 k/mm3 (150-375); Red Blood Count 4.09 M/mm3 (4.6-6.20); Red Cell Distribution Width 13.3 % (11.5-14.5); White Blood Count 10.7 K/mm3 (4.5-10.0)
[2024-08-12 06:58] LABS: Anion Gap 6 mmol/L (4-12); Blood Urea Nitrogen 17 mg/dL (9-20); Calcium 8.5 mg/dL (8.4-10.2); Carbon Dioxide 30 mmol/L (22-30); Chloride 102 mmol/L (98-107); Estimated CRCL calculation 76 ml/min; Estimated Glomerular Filt Rate > 60; Glucose 102 mg/dL (65-110); Potassium 4.6 mmol/L (3.4-5.0); Sodium 138 mmol/L (137-145)
[2024-08-12 08:50] VITALS: PULSE 50
[2024-08-12] MEDS: polyethylene glycoL 3350 17 GM POWD.PACK PO (08:52)
[2024-08-12] MEDS: SENNA/DOCUSATE SODIUM TABLET 2 TAB PO (08:52)
[2024-08-12] MEDS: RANOLAZINE 500 MG TAB.ER.12H PO (08:52)
[2024-08-12] MEDS: FAMOTIDINE 20 MG TABLET PO (08:52)
[2024-08-12] MEDS: PANTOPRAZOLE 40 MG TABLET PO (08:52)
[2024-08-12] MEDS: ROSUVASTATIN 5 MG TABLET PO (08:52)
[2024-08-12] MEDS: SERTRALINE HCL 50 MG TABLET 100 MG PO (08:52)
[2024-08-12] MEDS: MELOXICAM 7.5 MG TABLET PO (08:52)
[2024-08-12] MEDS: ASPIRIN 81 MG ENTERIC TABLET PO (08:53)
[2024-08-12] MEDS: NIFEdipine 30 MG TAB.ER.24 90 MG PO (08:53)
[2024-08-12] MEDS: predniSONE 5 MG TABLET PO (08:54)
[2024-08-12] MEDS: LOSARTAN POTASSIUM 100 MG TABLET PO (08:54)
[2024-08-12] MEDS: ALPRAZolam (*CRX) 0.5 MG TABLET PO (08:54)
[2024-08-12] MEDS: traMADol HCL (*CRX) 50 MG TABLET PO (09:00)
--- NOTE | 2024-08-12 10:12 | P.PNAN_ITS ---
Anes - Prog Note Post-Op Date/Time: 08/12/24 10:12 Cardiovascular status: normal Respiratory status: normal Airway patency: baseline Mental status: baseline Post-Op hydration status: normal Vital Signs: Last Vital Signs Temp 97.6 F 08/12/24 05:28 Pulse 50 L 08/12/24 05:28 Resp 20 08/12/24 05:28 BP 137/87 08/12/24 05:28 Pulse Ox 94 08/12/24 05:28 O2 Del Method Room Air 08/12/24 07:31 O2 Flow Rate 8 08/11/24 15:05 Pain Score (VAS): 0/10 I/O: Intake & Output 08/11/24 08/12/24 08/12/24 23:59 07:59 15:59 Intake Total 660 550 Output Total 275 Balance 660 275 Laboratory Tests 08/12/24 06:02 08/12/24 06:02 08/11/24 08/12/24 10:32 06:02 WBC 10.7 H RBC 4.09 L Hgb 12.4 L D Hct 38.9 L MCV 95.1 MCH 30.3 MCHC 31.9 L RDW 13.3 Plt Count 226 MPV 9.4 Immature Gran % (Auto) 0.5 Neut % (Auto) 66.7 Lymph % (Auto) 23.1 Montgomery % (Auto) 8.8 H Eos % (Auto) 0.7 Baso % (Auto) 0.2 Lymph # (Auto) 2.47 Montgomery # (Auto) 0.9 H Eos # (Auto) 0.1 Baso # (Auto) 0.0 Abs Immat Gran (auto) 0.05 H Absolute Neuts (auto) 7.1 H Absolute Nucleated RBC 0.000 Nucleated RBC % 0.0 Sodium 138 Potassium 4.6 Chloride 102 Carbon Dioxide 30 Anion Gap 6 BUN 17 Creatinine 1.05 Estim Creat Clear Calc 76 Estimated GFR > 60 Glucose 102 Calcium 8.5 Blood Type O Positive Antibody Screen Negative Post-procedural complaints: none Patient Feedback: Patient satisfied with anesthetic care.
== END 2024-08-12 11:35 | disposition home or self-care (01) ==
LOC: ANHSURGERY 09:56 → ANH3MEDSUR 16:13
PROVIDERS: Physician Assistant Surgical; Visit Provider Orthopaedic Surgery
PROC: (CPT 27447; principal; 2024-08-11 12:00)
DX: M17.12 Unilateral primary osteoarthritis, left knee (principal); Z87.891 Personal history of nicotine dependence
CPT/HCPCS: 27447; 36415; 73560; 80048; 85025; 86850; 86900; 86901; 94640; 97110; 97161; 97165; A9270; C1713; C1776; J0171; J0360; J0461; J0690; J1100; J1171; J1885; J2003; J2250; J2270; J2405; J2704; J2795; J3010; J7120; J7512